=== PATIENT | female | born 1995 | race African-American/Black ===

== ENCOUNTER 2019-11-04 18:47 | Emergency (ER) | payer OTHER, MEDICAID ==
[~2019-11-04] VITALS: Ht 160 cm; Wt 74.8 kg
[~2019-11-04 18:47] MED LIST: AMOXICILLIN500 MG ORAL; LIDOCAINE VISCO20 ML PO; NORCO 5-325 TA1 EAC1 ORAL
--- NOTE | 2019-11-04 19:08 | NUR ---
ED Nurse Note: pt wants test. pt obtained urine. sent to lab
[2019-11-04 19:09] VITALS: BP_SYST 69
--- NOTE | 2019-11-04 19:25 | NUR ---
ED Nurse Note: pt left without dc paper work. pt is aox4 on room air accompanied by family member
--- NOTE | 2019-11-04 19:30 | Emergency Room Report ---
History of Present Illness General Chief Complaint: General Complaint Source: Patient Present Illness HPI Patient presents with concern for possible Patient has had abnormal menstrual cycles cannot recall her last normal menstrual cycle also was having some increased nausea Denies any chest pain denies any vomiting or diarrhea denies any abdominal pain denies any dysuria frequency Allergies: Coded Allergies: NUT - UNSPECIFIED (Verified Allergy, Severe, Anaphylaxis, 11/04/19) Patient History Past Medical History: see triage record Last Menstrual Period: unk Reviewed Nursing Documentation: PMH: Agreed; PSxH: Agreed Nursing Documentation-PMH Past Medical History: No History, Except For Review of Systems All Other Systems: negative except mentioned in HPI Physical Exam Vital Signs Date Time Temp Pulse Resp B/P (MAP) Pulse Ox O2 Delivery O2 Flow Rate FiO2 11/04/19 19:01 98.2 80 16 69/ 99 Room Air Sp02 EP Interpretation: reviewed, normal General Appearance: well appearing, no apparent distress Head: normocephalic, atraumatic Eyes: bilateral eye PERRL, bilateral eye EOMI ENT: hearing grossly normal, normal pharynx Respiratory: no respiratory distress, no retraction, no accessory muscle use Musculoskeletal: normal inspection Neurologic: alert, oriented x3 Psychiatric: normal inspection Skin: no rash Lymphatic: no adenopathy Medical Decision Making Diagnostic Impression: Primary Impression: nausea ER Course Given the patient's history and complaints Test was obtained which was negative At this time patient feels significantly improved and is asking to be discharged patient left without receiving discharge paperwork Labs Test 11/04/19 19:10 Urine HCG, Qualitative Negative (NEGATIVE) Last Vital Signs Date Time Temp Pulse Resp B/P (MAP) Pulse Ox O2 Delivery O2 Flow Rate FiO2 11/04/19 19:09 80 16 Room Air 11/04/19 19:09 98.2 69/ 99 Status: improved Disposition: HOME, SELF-CARE Condition: Improved Referrals: PMD Patient Instructions: Nausea and Vomiting, Adult, [id number] Additional Instructions: Patient is provided with the discharge instructions notified to follow up with primary doctor in the next 2-3 days otherwise return to the er with any worsening symptoms. Please note that this report is being documented using [employer]AGON technology. This can lead to erroneous entry secondary to incorrect interpretation by the dictating instrument. Abby Dorsey DO Nov 04, 2019 19:30
[2019-11-04 19:31] VITALS: BP 125/67
== END 2019-11-04 20:00 | disposition home or self-care (01) ==
LOC: EMR 20:00
DX: R11.0 Nausea (principal)
CPT/HCPCS: 81025; 99282